=== PATIENT | female | born 1995 | race Hispanic/Latino ===

== ENCOUNTER 2025-02-20 21:21 | Emergency (ER) | payer SELFPAY ==
[~2025-02-20] VITALS: Ht 167.6 cm; Wt 87.1 kg
--- NOTE | 2025-02-20 21:24 | NUR ---
UA CUP PROVIDED
[2025-02-20 21:50] LABS: IMMATURE GRANULOCYTE ABSOLUTE 0.04 K/uL (0-1); NUCLEATED RED BLOOD CELLS 0.0 % (0.0-0.19); PLATELET COUNT (AUTO) 283 K/uL (130-400); RED BLOOD CELL COUNT(AUTO) 4.59 MIL/uL (4.00-5.50); RED CELL DISTRIBUTION WIDTH 13.3 % (11.0-15.5); WHITE BLOOD COUNT (AUTO) 12.4 K/uL (4.8-10.8)
[2025-02-20 21:55] LABS: APPEARANCE,URINE CLEAR (CLEAR); GLUCOSE, URINE (UA) NEGATIVE (NEGATIVE); LEUKOCYTE ESTERASE ,URINE NEGATIVE Leu/uL (NEGATIVE); NITRATE,URINE NEGATIVE (NEGATIVE); OCCULT BLOOD,URINE SMALL (NEGATIVE)
[2025-02-20 21:56] LABS: ADD UA MICROSCOPIC YES
[2025-02-20 21:57] LABS: CREATININE 0.9 mg/dL (0.5-1.0); GLOMERULAR FILTR. RATE CALC 89.0 mL/min (>90); GLUCOSE,RANDOM 102.0 mg/dL (70-105); SODIUM SERUM 138.0 mmol/L (136-145); UREA NITROGEN, BLOOD 11.0 mg/dL (7-18)
[2025-02-20] MEDS: 0.9%NACL 1000ML 1,000 ML IV STA (21:58)
[2025-02-20 21:59] LABS: SQUAMOUS EPITHELIAL CELL,UR FEW /HPF (0-2)
[2025-02-20 22:08] LABS: HCG,QUANTITATIVE 0.0 mIU/mL (0-5)
[2025-02-20] MEDS ORDERED: IOHEXOL-350 75 ML VIAL IV ONE (22:34)
--- NOTE | 2025-02-20 23:22 | ERN ---
ED Note History of Present Illness Stated Complaint: RT FLANK PAIN Chief Complaint: Flank Pain Time Seen by MD: 21:23 Time Seen by Midlevel: 21:26 Dictation: 29-year-old female with no past medical history coming in with complaints of right back pain/flank pain radiating to the right lower quadrant pain onset earlier today. Denies having any fever nausea or vomiting. Allergies: Coded Allergies: No Known Allergies (Unverified Allergy, Unknown, 02/20/25) Home Meds Active Scripts Ketorolac Tromethamine (Ketorolac Tromethamine) 10 Mg Tablet, 1 TAB PO Q6HPRN PRN for pain for 5 Days, #20 TAB 0 Refills Prov:ADRI[employer]ECOURTNEY [employer] 02/21/25 Past Medical History Past Medical History: No Pertinent History Surgical History: None LMP: Feb 06, 2025 Review of System Dictation Constitutional: Negative for fever,chills, and weight loss Eyes: Negative for injury, pain,redness, and discharge ENT: Negative for injury,pain or swelling Cardiovascular: Negative for chest pain, palpitations, and edema Respiratory: Negative for shortness of breath, cough, and wheezing, Abdomen/GI: Right lower quadrant pain without nausea, vomiting or diarrhea Back: Negative for injury and pain : Negative for injury, bleeding and discharge MS/Extremity: Negative for injury and deformity Skin: Negative for rash, and discoloration Neuro: Negative for headache, weakness, numbness, tingling, and seizure Psych: Negative for suicide ideation, homicidal ideation, and hallucinations Review of Systems: was completed Initial Vital Sign VS Vital Signs Date Time Temp Pulse Resp B/P (MAP) Pulse Ox O2 Delivery O2 Flow Rate FiO2 02/20/25 21:23 98.8 58 20 148/67 100 Room Air Physical Exam Dictation General: awake, alert, NAD Head/Face: Normocephalic, atraumatic Eyes: PERRL, EOMI, vision at baseline ENT: oral cavity clear, TMs clear, no signs of infection Neck: Trachea midline, supple, no nuchal rigidity Cardiovascular: RRR, normal S1/S2, No MRGs, no JVD Respiratory: CTAB, no respiratory distress, No rales or wheezes Abdomen: Soft, right quadrant tenderness on palpation, non-distended, normal bowel sounds, no guarding or rebound. Skin: Warm, dry, normal turgor, no rash MS/Extremity: Pulses equal, no cyanosis, neurovascular intact, FROM Neuro: COAx4, GCS 15, strength 5/5, CN 2-12 intact, normal cerebellar exam, normal gait, Psych: Normal behavior, mood, and affect normal Results (Laboratory/Radiology) Laboratory/Radiology Laboratory Tests Test 02/20/25 21:43 White Blood Count 12.4 K/uL (4.8-10.8) H Red Blood Count 4.59 MIL/uL (4.00-5.50) Hemoglobin 13.1 g/dL (12.0-16.0) Hematocrit 39.8 % (36-48) Mean Corpuscular Volume 86.7 fL (79-99) Mean Corpuscular Hemoglobin 28.5 pg (27.0-33.0) Mean Corpuscular Hemoglobin Concent 32.9 g/dL (32.0-36.0) Red Cell Distribution Width 13.3 % (11.0-15.5) Platelet Count 283 K/uL (130-400) Mean Platelet Volume 9.6 fL (7.5-10.5) Immature Granulocyte % (Auto) 0.3 % (0-1) Neutrophils (%) (Auto) 62.3 % (40.0-77.0) Lymphocytes (%) (Auto) 30.8 % (21.0-51.0) Monocytes (%) (Auto) 4.9 % (3.0-13.0) Eosinophils (%) (Auto) 1.2 % (0.0-8.0) Basophils (%) (Auto) 0.5 % (0.0-5.0) Neutrophils # (Auto) 7.7 K/uL (1.8-7.7) Lymphocytes # (Auto) 3.8 K/uL (1.0-4.8) Monocytes # (Auto) 0.6 K/uL (0.1-1.0) Eosinophils # (Auto) 0.15 K/uL (0.00-0.70) Basophils # (Auto) 0.06 K/uL (0.00-0.20) Absolute Immature Granulocyte (auto 0.04 K/uL (0-1) Nucleated Red Blood Cells 0.0 % (0.0-0.19) Urine Color LIGHT-YELLOW (YELLOW) Urine Appearance CLEAR (CLEAR) Urine pH 6.5 (5.0-8.0) Urine Specific [place] 1.024 (1.001-1.031) Urine Protein NEGATIVE mg/dL (NEGATIVE) Urine Glucose (UA) NEGATIVE mg/dL (NEGATIVE) Urine Ketones NEGATIVE mg/dL (NEGATIVE) Urine Occult Blood SMALL (NEGATIVE) H Urine Nitrate NEGATIVE (NEGATIVE) Urine Bilirubin NEGATIVE mg/dL (NEGATIVE) Urine Urobilinogen 2.0 mg/dL (0.2-1.0) H Urine Leukocyte Esterase NEGATIVE [place]/uL Urine RBC 26-50 /HPF (0-1) H Urine WBC 2-5 /HPF (0-1) H Urine Squamous Epithelial Cells FEW /HPF (0-2) Urine Bacteria None /HPF (None Seen) Urine Hyaline Casts 2-5 /LPF (0-1 /LPF) H Sodium Level 138 mmol/L (136-145) Potassium Level 3.6 mmol/L (3.5-5.1) Chloride Level 104 mmol/L (101-111) Carbon Dioxide Level 27 mmol/L (21-32) Blood Urea Nitrogen 11 mg/dL (7-18) Creatinine 0.9 mg/dL (0.5-1.0) Glomerular Filtration Rate Calc 89 mL/min (>90) Random Glucose 102 mg/dL (70-105) Total Calcium 8.5 mg/dL (8.5-10.1) Human Chorionic Gonadotropin, Quant 0 mIU/mL (0-5) Labs Reviewed?: Yes CT Scan Comment: [place] [address] IMAGING REPORT Signed PATIENT: CHELLY SAAVEDRA MR#: [id number] : 1995 SEX: F AGE: 29 LOCATION: [facility] ORDER 32 STATUS: REG REPORT#: [id number] SERVICE 31 REASON: rlq pain ORDERING PHYSICIAN: COURTNEY DELEON CNP PROCEDURE: ABD PEL W - CT ABDOMEN/PELVIS W/CONTRAST EXAM: CT Abdomen and Pelvis with IV contrast CLINICAL HISTORY: RLQ pain. TECHNIQUE: Axial computed tomography images of the abdomen and pelvis with intravenous contrast. CONTRAST: With intravenous contrast. COMPARISON: None provided. FINDINGS: LUNG BASES: The lung bases appear clear. No pleural effusions are seen. LIVER: Unremarkable. GALLBLADDER AND BILE DUCTS: The gallbladder appears within normal limits. No radiopaque gallstones are seen. No biliary ductal dilatation is evident. PANCREAS: Unremarkable. SPLEEN: Unremarkable. ADRENAL GLANDS: Unremarkable. KIDNEYS, URETERS, AND BLADDER: There is a 3 mm obstructing calculus at the right ureterovesical junction (coronal image 25/54) with mild hydroureteronephrosis. There is also a 3 mm non-obstructing right renal calculus. There is a slightly delayed right nephrogram. The left kidney is unremarkable. The urinary bladder is mildly distended. STOMACH AND BOWEL: Unremarkable appearance of the stomach and bowel. No evidence of bowel obstruction. No evidence suggesting enteritis or colitis. There are colonic diverticula without evidence of diverticulitis. APPENDIX: No evidence of acute appendicitis on CT examination. PERITONEUM: Trace free fluid is seen in the pelvis. No free air or abscess. LYMPH NODES: No lymphadenopathy is evident. REPRODUCTIVE: The uterus is retroflexed. There is a 1 cm involuted/ruptured follicle in the right ovary (axial image 71/105). Calcific densities are seen in the pelvis, likely representing phleboliths. VASCULATURE: No evidence of abdominal aortic aneurysm. BONES: No aggressive appearing osseous lesion. No acute osseous pathology is evident. IMPRESSION: A 3 mm obstructing calculus at the right ureterovesical junction with mild hydroureteronephrosis. A 3 mm nonobstructing right renal calculus. An involuted/ruptured follicle in the right ovary with trace free fluid in the pelvis. No CT features of appendicitis. Other findings as described above. /[place] DICTATED BY: TYRA MAGALLON Jr., MD DATE: 02/21/25121 ELECTRONICALLY SIGNED BY: TYRA MAGALLON Jr., MD DATE: 02/21/25121 ED Course ED Course Orders Procedure Category Date Status Time Cbc With Differential LAB 02/20/25 Complete 21:25 Basic Metabolic Panel LAB 02/20/25 Complete 21:25 Urinalysis Profile LAB 02/20/25 Complete 21:25 Hcg,Quantitative LAB 02/20/25 Complete 21: 0.9%Nacl 1000ml (Ns PHA 02/20/25 Complete 1000ml) 21:32 Ondansetron 4mg Inj PHA 02/20/25 Complete (Zofran 4mg Inj) 22:00 Morphine 2mg Syg PHA 02/20/25 Complete (Morphine 2mg Syg) 22:00 Ct Abdomen/Pelvis CT 02/20/25 Resulted W/Contrast 21:32 Iohexol (Omnipaque) PHA 02/20/25 Complete 22:34 Ketorolac PHA 02/20/25 Complete Tromethamine 15mg/Ml 23:00 Current Medications Medications (Trade) Dose Ordered Sig/Reanna Route PRN Reason Start Time Stop Time Status Last Admin Dose Admin Iohexol (Omnipaque) 75 ml STK-MED ONCE IV 02/20/25 22:34 02/20/25 22:34 DC Ketorolac Tromethamine (toRADol) 15 mg ONCE ONCE IV 02/20/25 23:00 02/20/25 23:09 DC 02/20/25 23:14 Morphine Sulfate (morPHINE 2MG SYG) 2 mg ONCE ONCE IVP 02/20/25 22:00 02/20/25 22:01 DC 02/20/25 21:58 Ondansetron HCl (zoFRAN 4MG INJ) 4 mg ONCE ONCE IVP 02/20/25 22:00 02/20/25 22:01 DC 02/20/25 21:57 Sodium Chloride 1,000 ml @ 1,000 mls/hr Q1H STAT IV 02/20/25 21:32 02/20/25 22:31 DC 02/20/25 21:58 Vital Signs Date Time Temp Pulse Resp B/P (MAP) Pulse Ox O2 Delivery O2 Flow Rate FiO2 02/20/25 21:23 98.8 58 20 148/67 100 Room Air Medical Decision Making MDM MDM: 29-year-old female with no past medical history coming in with complaints of right back pain/flank pain radiating to the right lower quadrant pain onset earlier today. Denies having any fever nausea or vomiting.CBC shows white count of 12, no anemia, no thrombocytopenia. Chemistry unremarkable. Patient is not . UA showing evidence of mild hematuria, no urinary tract infection. CT scan is showing a 3 mm obstructing calculus in the right UVJ with mild hy droureteronephrosis and a 3 mm nonobstructing in the right renal calculus. This is discussed with the patient. Educated patient that I will prescribe her tamsulosin and ketorolac. Also educated on red flag symptoms of when to return to the ER like severe abdominal pain, fever, nausea or vomiting. Written RX for Flomax 0.4 PO daily for 14 days given. Differential diagnosis: Appendicitis, kidney stone, ruptured cyst Rationale: Tests considered and ordered secondary to shared decision making include: Previous outside records reviewed: Old ER visits. Risk of complication and/or morbidity or mortality of patient management: None Medications-Per medication reconciliation Need for hospitalization: Patient does not meet criteria for hospitalization. Need for emergency major/minor surgery: No There are no social concerns with this patient. Prescription drug management Prescriptions will include symptomatic care Patient's prior external medical records from other ER visits were reviewed by me as indicated. Prior testing and results from previous visits were reviewed. Prior tests were taken into account with medical decision making and resource utilization, independent historian/historians were used to obtain complete medical history. I independently interpreted the test that were performed, results were reviewed by me and considered findings on radiology if ordered. Medical management and examination interpretation discussions were had by me with other qualified healthcare professionals as indicated for the patient's care. DX & DISP Disposition: Discharge Departure Impression: Primary Impression: Ureterovesical junction (UVJ) obstruction Additional Impressions: Kidney stone, Rupture of follicular cyst of ovary Condition: Stable Scripts Ketorolac Tromethamine (Ketorolac Tromethamine) 10 Mg Tablet 1 TAB PO Q6HPRN PRN for pain for 5 Days, #20 TAB 0 Refills Prov: COURTNEY DELEON CNP 02/21/25 Additional Instructions: Medications as prescribed. Drink a lot of water. Follow up with your primary doctor in 1-2 days. If you develop any severe abdominal or back pain with nausea and vomiting and fever please return back to the emergency room. Referrals: SELF,REFERRAL (PCP) Time of Disposition: 00:43 I have reviewed the case, and I agree with, Diagnosis and Plan COURTNEY DELEON CNP Feb 20, 2025 23:22
--- NOTE | 2025-02-21 00:23 | HMCIMG ---
EXAM: CT Abdomen and Pelvis with IV contrast CLINICAL HISTORY: RLQ pain. TECHNIQUE: Axial computed tomography images of the abdomen and pelvis with intravenous contrast. CONTRAST: With intravenous contrast. COMPARISON: None provided. FINDINGS: LUNG BASES: The lung bases appear clear. No pleural effusions are seen. LIVER: Unremarkable. GALLBLADDER AND BILE DUCTS: The gallbladder appears within normal limits. No radiopaque gallstones are seen. No biliary ductal dilatation is evident. PANCREAS: Unremarkable. SPLEEN: Unremarkable. ADRENAL GLANDS: Unremarkable. KIDNEYS, URETERS, AND BLADDER: There is a 3 mm obstructing calculus at the right ureterovesical junction (coronal image 25/54) with mild hydroureteronephrosis. There is also a 3 mm non-obstructing right renal calculus. There is a slightly delayed right nephrogram. The left kidney is unremarkable. The urinary bladder is mildly distended. STOMACH AND BOWEL: Unremarkable appearance of the stomach and bowel. No evidence of bowel obstruction. No evidence suggesting enteritis or colitis. There are colonic diverticula without evidence of diverticulitis. APPENDIX: No evidence of acute appendicitis on CT examination. PERITONEUM: Trace free fluid is seen in the pelvis. No free air or abscess. LYMPH NODES: No lymphadenopathy is evident. REPRODUCTIVE: The uterus is retroflexed. There is a 1 cm involuted/ruptured follicle in the right ovary (axial image 71/105). Calcific densities are seen in the pelvis, likely representing phleboliths. VASCULATURE: No evidence of abdominal aortic aneurysm. BONES: No aggressive appearing osseous lesion. No acute osseous pathology is evident. IMPRESSION: A 3 mm obstructing calculus at the right ureterovesical junction with mild hydroureteronephrosis. A 3 mm nonobstructing right renal calculus. An involuted/ruptured follicle in the right ovary with trace free fluid in the pelvis. No CT features of appendicitis. Other findings as described above. /[place]
[2025-02-21] MEDS ORDERED: KETO10TA2 PO (00:49)
[2025-02-21 01:00] VITALS: BP 136/65; PULSE 60; RESP 18; TEMP 98.6; O2SAT 99
== END 2025-02-21 01:01 | disposition home or self-care (01) ==
LOC: EDH 21:21
DX: N13.2 Hydronephrosis with renal and ureteral calculous obstruction (principal); N83.01 Follicular cyst of right ovary
CPT/HCPCS: 99285; 74177; 96374; 96375; 96361; 80048; 84702; 85025; 81001; 36415; J1885; J2270; J7030; J2405; Q9967